=== PATIENT | female | born 1970 | race Caucasian/White ===

== ENCOUNTER → 2020-03-09 | Outpatient (CLI) | payer BC ==
[~2020-03-09] MED LIST: INVOKANA PO; JANUMET PO; LISINOPRIL PO
--- NOTE | 2020-03-09 11:57 | Diagnostic Imaging Report ---
TECHNIQUE: Magnetic resonance imaging of the LEFT SHOULDER was performed WITHOUT injected contrast. COMPARISON: None available. HISTORY: Pain FINDINGS: MUSCLES AND TENDONS: Rotator Cuff: Partial thickness articular sided tear involving the supraspinatus tendon without retraction coronal image 16. Muscles: No focal muscle atrophy. Biceps Tendon: The long head of the biceps tendon is intact and within the intertubercular groove. GLENOHUMERAL JOINT: Glenoid Labrum: Superior labral fraying. Articular Cartilage: Partial-thickness cartilage loss. AC JOINT AND ACROMION: Mild hypertrophic degenerative changes of the acromioclavicular joint. Subacromial spurring. BONE: No acute fracture. SOFT TISSUES: Mild subacromial subdeltoid bursal fluid. IMPRESSION: Supraspinatus partial-thickness articular sided tearing. No atrophy. Downsloping acromion with mild spurring. Mild subacromial subdeltoid bursal fluid/bursitis. Signed by: Dr. Ben Blanca M.D. on 03/09/2020 11:54 AM
== END ==
LOC: MRI 10:39
PROVIDERS: ATTEND Family Medicine
DX: M25.512 Pain in left shoulder (principal)